=== PATIENT | male | born 1975 | race Caucasian/White ===

== ENCOUNTER 2019-06-15 13:38 | Observation (INO) ==
--- NOTE | 2019-06-15 13:49 | Emergency Department Note ---
Disposition Clinical Impression: Right upper quadrant abdominal pain Cholelithiasis Qualifiers: Cholelithiasis location: gallbladder Cholecystitis presence: without cho lecystitis Biliary obstruction: without biliary obstruction Qualified Code(s): K80.20 - Calculus of gallbladder without cholecystitis without obstruction Disposition: Admitted As Inpatient Condition: Undetermined Time of Disposition: 16:00 Abdominal Pain HPI - General Chief Complaint: ED Abdominal Pain Stated Complaint: gallbladder Time Seen by Provider: 06/15/19 13:46 Source: patient Mode of arrival: private vehicle Limitations: no limitations Nursing Notes Reviewed: Yes Vital Signs Reviewed: Yes - History of Present Illness HPI Narrative: Patient is a 43 year old male with a PMHx of hypertension and hyperlipidemia, presenting with CC of right upper quadrant abdominal pain. The patient was seen at [facility] a week ago. He has been having right upper quadrant abdominal pain. Pain started after eating greasy foods. It radiates into his epigastric and right upper quadrant. He had a CT done during that time which showed early mild acute cholecystitis. He had a fever at the time. The patient received IV fluids, Zofran, Protonix. He was discharged home on Cipro and given information to follow up with a general surgeon. Patient continues to complain of the pain that is colicky, comes in waves, and worse after eating. He has been taking tylenol without improvement in the pain. He has nausea, but denies vomiting, diarrhea, constipation, dysuria, hematuria, no chest pain, shortness of breath, fevers or chills. He was seen by his primary care physician's office. His PCP, Dr. Loc Ames, called up the general surgeon that the patient is supposed to see, Dr. Dallas. Dr. Dallas recommend the patient come to [facility] for lab work and further evaluation. Pain Scale: 6 - Related Data Home Medications Medication Instructions Recorded Confirmed ALPRAZolam [Xanax 1 MG Tablet] 1 mg PO BID 06/15/19 06/15/19 Alprazolam [Alprazolam Xr] 1 mg PO BID 06/15/19 06/15/19 Aspirin [Lo-Dose Aspirin EC] 81 mg PO DAILY 06/15/19 06/15/19 Atenolol 100 mg PO DAILY 06/15/19 06/15/19 BuPROPion XL (24 HR) [Wellbutrin 150 mg PO DAILY 06/15/19 06/15/19 XL] Ciprofloxacin [Cipro] 500 mg PO BID 06/15/19 06/15/19 Mometasone Furoate [Nasonex] 17 gm NS DAILY 06/15/19 06/15/19 [place]-3/Dha/Epa/Fish Oil [Fish Oil 1 each PO DAILY 06/15/19 06/15/19 1,000 mg Softgel] Ondansetron HCl [Zofran] 4 mg PO TID PRN 06/15/19 06/15/19 Pantoprazole Sodium [Protonix] 40 mg PO DAILY 06/15/19 06/15/19 Potassium Chloride [K-Tab ER] 20 meq PO BID 06/15/19 06/15/19 Pravastatin Sodium [Pravachol] 80 mg PO DAILY 06/15/19 06/15/19 Topiramate [Topamax] 25 mg PO HS 06/15/19 06/15/19 Allergies Allergy/AdvReac Type Severity Reaction Status Date / Time No Known Allergies Allergy Verified 06/15/19 13:43 All systems ED: reviewed and negative except as stated. Review of Systems: As Per HPI Constitutional: Denies: fever, chills Cardiovascular: Denies: chest pain, palpitations Respiratory: Denies: cough, dyspnea Gastrointestinal: Reports: abdominal pain, nausea. Denies: vomiting, diarrhea Genitourinary: Denies: dysuria, hematuria Musculoskeletal: Denies: back pain Neurological: Denies: headache, weakness Abdominal Pain PMH - Past Medical History Medical history: Reports: hyperlipidemia, hypertension Male Surgical History: Reports: no surgical history Psychiatric history: Reports: anxiety - Social History Smoking status: Never smoker Alcohol use: Reports: none Drug use: Reports: none Physical Exam - General Limitations: no limitations General appearance: alert, in no apparent distress - Head Head exam: atraumatic, normocephalic - Eye Eye exam: Present: normal appearance, EOMI - ENT ENT exam: normal exam, normal oropharynx - Neck Neck exam: Present: normal inspection, trachea midline - Chest Chest inspection: Present: normal inspection, symmetric chest wall rise - Respiratory Respiratory exam: Present: normal lung sounds bilaterally. Absent: respiratory distress, wheezes - Cardiovascular Cardiovascular exam: Present: regular rate, normal rhythm, normal heart sounds - Abdominal Exam Abdominal exam: Present: soft, Garcia's sign, other (right upper quadrant abdominal tenderness to palpation without rebound or guarding). Absent: distention - Extremities Exam Extremities exam: Present: normal capillary refill. Absent: pedal edema, calf tenderness - Neurological Exam Neurological exam: Present: alert, oriented X3 - Psychiatric Psychiatric exam: Present: normal affect, normal mood - Skin Skin exam: Present: warm, dry. Absent: diaphoresis, pallor Course Vital Signs Temperature 98.1 F 06/15/19 13:41 Pulse Rate 80 06/15/19 13:41 Respiratory Rate 16 06/15/19 13:41 Blood Pressure 161/104 06/15/19 13:41 O2 Sat by Pulse Oximetry 99 06/15/19 13:41 Temperature 98.1 F 06/15/19 13:41 Pulse Rate 78 06/15/19 16:25 Respiratory Rate 18 06/15/19 16:25 Blood Pressure 156/104 06/15/19 16:25 O2 Sat by Pulse Oximetry 94 06/15/19 16:25 Oxygen Delivery Oxygen Delivery Room Air Abdominal Pain - MDM Narrative Medical decision making narrative: Patient sent from his primary care physician's office and recommendation by general surgery, Dr. Dallas for further evaluation of his gallbladder. We will obtain CBC, BMP, hepatic panel and lipase. We will do a bedside ultrasound. We will obtain a formal ultrasound. Medical records from [facility] and his primary care physician's office were reviewed. Once imaging and labs return, will talk to surgery. 114:15 ED point of care bedside ultrasound for gallbladder was attempted however the patient had much bowel gas and was in pain. Will give him fentanyl and zofran and obtain formal gallbladder US. 15:20 Labs reviewed and are unremarkable. 15:40 Gallbladder US shows cholelithiasis without evidence of acute cholecystitis. Surgery, Dr. Dallas paged. 15:[address] Dallas, general surgery who will evaluate the patient while in the ER. 16:00 Patient was admitted to general surgery. - Medical Records Medical records reviewed: Yes I reviewed the patient's medical records. - Lab Data Lab results reviewed: Yes I reviewed the patient's lab results. Result diagrams: 06/15/19 14:08 06/15/19 14:08 Lab Results 06/15/19 06/15/19 Range/Units 14:08 14:08 WBC 8.0 (4.3-11.1) K/mcL RBC 5.62 H (4.19-5.50) M/mcL Hgb 16.2 (12.9-16.9) g/dL Hct 48.1 (37.5-50.1) % MCV 85.6 (83.0-100.0) fL MCH 28.8 (28.0-33.3) pg MCHC 33.7 (31.6-35.5) g/dL RDW 12.3 (11.5-14.5) % Plt Count 216 (140-400) K/mcL MPV 9.4 (9.4-12.4) fL Immature Gran % 0.4 (0-4) % Seg Neutrophils % 57.9 % Lymphocytes % 31.3 % Monocytes % 8.0 % Eosinophils % 1.8 % Basophils % 0.6 % Neutrophils # 4.6 (1.6-8.9) K/mcL Lymphocytes # 2.5 (0.6-4.6) K/mcL Monocytes # 0.6 (0.0-1.3) K/mcL Eosinophils # 0.1 (0.0-0.6) K/mcL Basophils # 0.1 (0.0-0.2) K/mcL Sodium 140 (136-145) mEq/L Potassium 3.7 (3.5-5.1) mEq/L Chloride 104 (98-107) mEq/L Carbon Dioxide 27 (23-29) mEq/L BUN 18 (6-20) mg/dL Creatinine 0.93 (0.70-1.30) mg/dL Est GFR ( Amer) > 60 (> 60) Est GFR (Non-Af Amer) > 60 (> 60) BUN/Creatinine Ratio 19 (6-26) Glucose 119 H (70-105) mg/dL Calculated Osmolality 293 (280-300) Calcium 9.5 (8.6-10.3) mg/dL Total Bilirubin 0.4 (0.3-1.0) mg/dL Direct Bilirubin 0.0 (0.0-0.2) mg/dL Indirect Bilirubin 0.4 (0.0-1.2) mg/dL AST 22 (13-39) Units/L ALT 36 (7-52) Units/L Alkaline Phosphatase 68 (34-104) Units/L Serum Total Protein 7.2 (6.4-8.9) g/dL Albumin 4.7 (3.5-5.7) g/dL Globulin 2.5 (2.4-3.5) g/dL Albumin/Globulin Ratio 1.9 (1.1-2.2) Lipase 25 (11-82) Units/L - Radiology Data Radiology results reviewed: Yes I reviewed the patient's radiology results. Gallbladder Ultrasound 06/15/19 14:15 IMPRESSION: Cholelithiasis without evidence of acute cholecystitis or other acute process in the right upper quadrant. D/ / Doc Tafoya MD / Doc Tafoya MD Interpreting Provider: Doc Tafoya MD
[2019-06-15] MEDS ORDERED: Ondansetron 4 MG/2 ML VIAL IVP ONE ×2 (14:16→18:09)
[2019-06-15] MEDS ORDERED: *HR* FentaNYL (PF) 100 MCG/2 ML VIAL IVP ONE (14:16)
--- NOTE | 2019-06-15 14:21 | Emergency Department Note ---
Disposition Clinical Impression: Right upper quadrant abdominal pain Cholelithiasis Qualifiers: Cholelithiasis location: gallbladder Cholecystitis presence: without cho lecystitis Biliary obstruction: without biliary obstruction Qualified Code(s): K80.20 - Calculus of gallbladder without cholecystitis without obstruction Disposition: Admitted As Inpatient Condition: Fair Forms: ED Satisfaction Letter, Work/School Release Time of Disposition: 16:13 General Adult HPI - General Chief complaint: ED Abdominal Pain Stated complaint: gallbladder Time Seen by Provider: 06/15/19 13:46 Source: patient Mode of arrival: private vehicle Limitations: no limitations - History of Present Illness Pain Scale: 6 - Related Data Allergies Allergy/AdvReac Type Severity Reaction Status Date / Time No Known Allergies Allergy Verified 06/15/19 13:43 Constitutional: Denies: fever, chills Cardiovascular: Denies: chest pain, palpitations Respiratory: Denies: cough, dyspnea Gastrointestinal: Reports: abdominal pain, nausea. Denies: vomiting, diarrhea Genitourinary: Denies: dysuria, hematuria Musculoskeletal: Denies: back pain Neurological: Denies: headache, weakness Past Medical History - Past Medical History Medical history: Reports: hyperlipidemia, hypertension Psychiatric history: Reports: anxiety - Social History Smoking Status: Never smoker Alcohol use: Reports: none Drug use: Reports: none Physical Exam - General Limitations: no limitations General appearance: alert, in no apparent distress Course Vital Signs Temperature 98.1 F 06/15/19 13:41 Pulse Rate 80 06/15/19 13:41 Respiratory Rate 16 06/15/19 13:41 Blood Pressure 161/104 06/15/19 13:41 O2 Sat by Pulse Oximetry 99 06/15/19 13:41 Temperature 98.1 F 06/15/19 13:41 Pulse Rate 78 06/15/19 15:24 Respiratory Rate 18 06/15/19 15:24 Blood Pressure 139/88 06/15/19 15:24 O2 Sat by Pulse Oximetry 97 06/15/19 15:24 Oxygen Delivery Oxygen Delivery Room Air Medical Decision Making - Lab Data Result diagrams: 06/15/19 14:08 06/15/19 14:08 Lab Results 06/15/19 06/15/19 Range/Units 14:08 14:08 WBC 8.0 (4.3-11.1) K/mcL RBC 5.62 H (4.19-5.50) M/mcL Hgb 16.2 (12.9-16.9) g/dL Hct 48.1 (37.5-50.1) % MCV 85.6 (83.0-100.0) fL MCH 28.8 (28.0-33.3) pg MCHC 33.7 (31.6-35.5) g/dL RDW 12.3 (11.5-14.5) % Plt Count 216 (140-400) K/mcL MPV 9.4 (9.4-12.4) fL Immature Gran % 0.4 (0-4) % Seg Neutrophils % 57.9 % Lymphocytes % 31.3 % Monocytes % 8.0 % Eosinophils % 1.8 % Basophils % 0.6 % Neutrophils # 4.6 (1.6-8.9) K/mcL Lymphocytes # 2.5 (0.6-4.6) K/mcL Monocytes # 0.6 (0.0-1.3) K/mcL Eosinophils # 0.1 (0.0-0.6) K/mcL Basophils # 0.1 (0.0-0.2) K/mcL Sodium 140 (136-145) mEq/L Potassium 3.7 (3.5-5.1) mEq/L Chloride 104 (98-107) mEq/L Carbon Dioxide 27 (23-29) mEq/L BUN 18 (6-20) mg/dL Creatinine 0.93 (0.70-1.30) mg/dL Est GFR ( Amer) > 60 (> 60) Est GFR (Non-Af Amer) > 60 (> 60) BUN/Creatinine Ratio 19 (6-26) Glucose 119 H (70-105) mg/dL Calculated Osmolality 293 (280-300) Calcium 9.5 (8.6-10.3) mg/dL Total Bilirubin 0.4 (0.3-1.0) mg/dL Direct Bilirubin 0.0 (0.0-0.2) mg/dL Indirect Bilirubin 0.4 (0.0-1.2) mg/dL AST 22 (13-39) Units/L ALT 36 (7-52) Units/L Alkaline Phosphatase 68 (34-104) Units/L Serum Total Protein 7.2 (6.4-8.9) g/dL Albumin 4.7 (3.5-5.7) g/dL Globulin 2.5 (2.4-3.5) g/dL Albumin/Globulin Ratio 1.9 (1.1-2.2) Lipase 25 (11-82) Units/L Attestation Statement - Attestation Attestation: I examined this patient and my medical decision-making was reviewed with the Resident Physician. I agree with the documented findings, disposition and treatment plan as described except to the extent set forth below. Patient to the ED with a chief complaint of right upper quadrant abdominal pain. Radiates to the epigastric area. Onset about a week ago. He was evaluated at outside hospital that time and a CT scan was concerning for some Taylor cystitis and call bladder wall thickening. He continues to have pain. He has had some fevers. He has been unable to follow-up with surgery thus far. He saw his PCP who consulted with surgery who recommended him to come to the ED. On exam he is in no distress with right upper quadrant tenderness. Plan. Bedside also performed by with my supervision. Nonvisualization of the gallbladder. We will get formal ultrasound, labs, surgery consultation. Ultrasound shows gallstones. Surgery to see. Patient is admitted to Dr. Dallas
[2019-06-15 14:24] LABS: Basophils # 0.1 K/mcL (0.0-0.2); Basophils % 0.6 %; Eosinophils # 0.1 K/mcL (0.0-0.6); Eosinophils % 1.8 %; Hematocrit 48.1 % (37.5-50.1); Hemoglobin 16.2 g/dL (12.9-16.9); Immature Granulocytes % 0.4 % (0-4); Lymphocytes # 2.5 K/mcL (0.6-4.6); Lymphocytes % 31.3 %; Mean Corpuscular HGB Conc 33.7 g/dL (31.6-35.5); Mean Corpuscular Hemoglobin 28.8 pg (28.0-33.3); Mean Corpuscular Volume 85.6 fL (83.0-100.0); Mean Platelet Volume 9.4 fL (9.4-12.4); Monocytes # 0.6 K/mcL (0.0-1.3); Neutrophils # 4.6 K/mcL (1.6-8.9); Platelet Count 216 K/mcL (140-400); Red Blood Count 5.62 M/mcL (4.19-5.50); Red Cell Distribution Width 12.3 % (11.5-14.5); Segmented Neutrophils % 57.9 %
[2019-06-15 14:56] LABS: Alanine Aminotransferase 36 Units/L (7-52); Albumin 4.7 g/dL (3.5-5.7); Albumin/Globulin Ratio 1.9 (1.1-2.2); Alkaline Phosphatase 68 Units/L (34-104); Aspartate Amino Transferase 22 Units/L (13-39); BUN/Creatinine Ratio 19 (6-26); Bilirubin,Indirect 0.4 mg/dL (0.0-1.2); Bilirubin,Total 0.4 mg/dL (0.3-1.0); Blood Urea Nitrogen 18 mg/dL (6-20); Calcium 9.5 mg/dL (8.6-10.3); Carbon Dioxide 27 mEq/L (23-29); Chloride 104 mEq/L (98-107); Globulin 2.5 g/dL (2.4-3.5); Glucose 119 mg/dL (70-105); Lipase 25 Units/L (11-82); Osmolality,Calculated 293 (280-300); Potassium 3.7 mEq/L (3.5-5.1); Sodium 140 mEq/L (136-145); Total Protein 7.2 g/dL (6.4-8.9); eGFR For African Americans > 60 (> 60); eGFR For Non-African Americans > 60 (> 60)
[2019-06-15] MEDS ORDERED: Hyoscyamine SL 0.125 MG TAB.SUBL SL STA (15:42)
[2019-06-15] MEDS ORDERED: Ondansetron ODT 4 MG TAB.RAPDIS SL PRN ×2 (16:32→20:54)
[2019-06-15] MEDS ORDERED: D5% in 0.45% NACL w KCl 20 MEQ/1,000 ML MLS IVC SCH ×2 (16:45→20:54)
--- NOTE | 2019-06-15 17:07 | Acute Care Surgery H&P ---
Date of Encounter: 06/15/19 Time of Encounter: 17:05 Assessment and Plan (1) Cholelithiasis Current Visit: Yes Status: Acute 43M with symptomatic cholelithiasis; NPO IVF IV abx OR today for mohit with IOC The assessment and plan as outlined above was discussed with the patient and/or family members who expressed understanding and agreement. All questions were answered. Qualifiers: Cholelithiasis location: gallbladder Cholecystitis presence: without cholecystitis Biliary obstruction: without biliary obstruction Qualified Code(s): K80.20 - Calculus of gallbladder without cholecystitis without obstruction History of Present Illness Chief complaint: abdominal pain HPI: Mr. Mckeon is a 43 year old male PMH significant for HLD, HTN, GERD who presents with post prandial RUQ abdominal pain with radiation to the back. the pain is rated a 8/10 with the patient holding his hand over the area where it hurts most. No associated nausea, vomiting reported, but the pain is not resolving like it has in the past. He is scheduled for an appointment on 06/25, but does not feel he can make it until then. General surgery was consulted for management recommendations. US was obtained which was reviewed by me which demonstrated Small gallbladder stone. No gallbladder wall thickening or pericholecystic fluid. Past Med Surg Social Fam HX - Past Medical History Medical history: hyperlipidemia, hypertension Additional medical history: Horse shoe kidney Psychiatric history: anxiety - Past Surgical History Surgical History: no surgical history - Social History Smoking Status: Never smoker Alcohol use: none Drug use: none - Additional Family History Additional family history: non contributory Medications and Allergies ALPRAZolam [Xanax 1 MG Tablet] 1 mg PO BID 06/15/19 [History] Alprazolam [Alprazolam Xr] 1 mg PO BID 06/15/19 [History] Aspirin [Lo-Dose Aspirin EC] 81 mg PO DAILY 06/15/19 [History] Atenolol 100 mg PO DAILY 06/15/19 [History] BuPROPion XL (24 HR) [Wellbutrin XL] 150 mg PO DAILY 06/15/19 [History] Ciprofloxacin [Cipro] 500 mg PO BID 06/15/19 [History] Mometasone Furoate [Nasonex] 17 gm NS DAILY 06/15/19 [History] [place]-3/Dha/Epa/Fish Oil [Fish Oil 1,000 mg Softgel] 1 each PO DAILY 06/15/19 [History] Ondansetron HCl [Zofran] 4 mg PO TID PRN 06/15/19 [History] Pantoprazole Sodium [Protonix] 40 mg PO DAILY 06/15/19 [History] Potassium Chloride [K-Tab ER] 20 meq PO BID 06/15/19 [History] Pravastatin Sodium [Pravachol] 80 mg PO DAILY 06/15/19 [History] Topiramate [Topamax] 25 mg PO HS 06/15/19 [History] Allergy/AdvReac Type Severity Reaction Status Date / Time No Known Allergies Allergy Verified 06/15/19 13:43 Review of Systems All systems PM: 12 point ROS negative besides HPI findings General Surgery Exam Initial Vital Signs Temp Pulse Resp BP Pulse Ox 98.1 F 80 16 161/104 99 06/15/19 13:41 06/15/19 13:41 06/15/19 13:41 06/15/19 13:41 06/15/19 13:41 - General physical appearance no distress - Eyes PERRL, normal ocular movement - ENT normocephalic - Neck trachea midline, no lymphadectomy - Respiratory normal expansion, normal respiratory effort - Cardiovascular Cardiovascular exam: Present: RRR - Abdomen Abdomen general surgery: Present: soft, tender Abdominal Tenderness: Present: RUQ - Integumentary Integumentary general surgery: Present: warm and dry - Neurologic Present: CN 2-12 grossly intact - Musculoskeletal Present: normal gait, normal posture - Psychiatric Psychiatric general surgery: Present: A&Ox3 Results - Labs 06/15/19 14:08 06/15/19 14:08 Abnormal lab results RBC 5.62 M/mcL (4.19-5.50) H 06/15/19 14:08 Glucose 119 mg/dL (70-105) H 06/15/19 14:08 Diabetes panel 06/15/19 Range/Units 14:08 Sodium 140 (136-145) mEq/L Potassium 3.7 (3.5-5.1) mEq/L Chloride 104 (98-107) mEq/L Carbon Dioxide 27 (23-29) mEq/L BUN 18 (6-20) mg/dL Creatinine 0.93 (0.70-1.30) mg/dL Glucose 119 H (70-105) mg/dL Calcium 9.5 (8.6-10.3) mg/dL AST 22 (13-39) Units/L ALT 36 (7-52) Units/L Alkaline Phosphatase 68 (34-104) Units/L Albumin 4.7 (3.5-5.7) g/dL Calcium panel 06/15/19 Range/Units 14:08 Calcium 9.5 (8.6-10.3) mg/dL Albumin 4.7 (3.5-5.7) g/dL Pituitary panel 06/15/19 Range/Units 14:08 Sodium 140 (136-145) mEq/L Potassium 3.7 (3.5-5.1) mEq/L Chloride 104 (98-107) mEq/L Carbon Dioxide 27 (23-29) mEq/L BUN 18 (6-20) mg/dL Creatinine 0.93 (0.70-1.30) mg/dL Glucose 119 H (70-105) mg/dL Calcium 9.5 (8.6-10.3) mg/dL Adrenal panel 06/15/19 Range/Units 14:08 Sodium 140 (136-145) mEq/L Potassium 3.7 (3.5-5.1) mEq/L Chloride 104 (98-107) mEq/L Carbon Dioxide 27 (23-29) mEq/L BUN 18 (6-20) mg/dL Creatinine 0.93 (0.70-1.30) mg/dL Glucose 119 H (70-105) mg/dL Calcium 9.5 (8.6-10.3) mg/dL Total Bilirubin 0.4 (0.3-1.0) mg/dL AST 22 (13-39) Units/L ALT 36 (7-52) Units/L Alkaline Phosphatase 68 (34-104) Units/L Albumin 4.7 (3.5-5.7) g/dL All other labs normal. - Imaging US - abdomen: report reviewed, image reviewed
--- NOTE | 2019-06-15 17:09 | Anesthesia Evaluation PreOp ---
Date of Encounter: 06/15/19 Time of Encounter: 17:06 - Past History Planned Operation: [employer]otic [employer]. [place]. Alcohol Use: none Drug use: none Medications and Allergies ALPRAZolam [Xanax 1 MG Tablet] 1 mg PO BID 06/15/19 [History] Alprazolam [Alprazolam Xr] 1 mg PO BID 06/15/19 [History] Aspirin [Lo-Dose Aspirin EC] 81 mg PO DAILY 06/15/19 [History] Atenolol 100 mg PO DAILY 06/15/19 [History] BuPROPion XL (24 HR) [Wellbutrin XL] 150 mg PO DAILY 06/15/19 [History] Ciprofloxacin [Cipro] 500 mg PO BID 06/15/19 [History] Mometasone Furoate [Nasonex] 17 gm NS DAILY 06/15/19 [History] [place]-3/Dha/Epa/Fish Oil [Fish Oil 1,000 mg Softgel] 1 each PO DAILY 06/15/19 [History] Ondansetron HCl [Zofran] 4 mg PO TID PRN 06/15/19 [History] Pantoprazole Sodium [Protonix] 40 mg PO DAILY 06/15/19 [History] Potassium Chloride [K-Tab ER] 20 meq PO BID 06/15/19 [History] Pravastatin Sodium [Pravachol] 80 mg PO DAILY 06/15/19 [History] Topiramate [Topamax] 25 mg PO HS 06/15/19 [History] Allergy/AdvReac Type Severity Reaction Status Date / Time No Known Allergies Allergy Verified 06/15/19 13:43 Anesthesia Results - Labs 06/15/19 14:08 06/15/19 14:08
--- NOTE | 2019-06-15 17:30 | Anesthesia Evaluation PreOp ---
Date of Encounter: 06/15/19 Time of Encounter: 17:28 - Past History Planned Operation: [employer]otic [employer]. 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 History: Other (anxiety/Depression) Other Medical History: GERD Anesthesia History: No Prior Anesthetic Complications, Past Anesthesia (none) Alcohol Use: none Drug use: none Medications and Allergies ALPRAZolam [Xanax 1 MG Tablet] 1 mg PO BID 06/15/19 [History] Alprazolam [Alprazolam Xr] 1 mg PO BID 06/15/19 [History] Aspirin [Lo-Dose Aspirin EC] 81 mg PO DAILY 06/15/19 [History] Atenolol 100 mg PO DAILY 06/15/19 [History] BuPROPion XL (24 HR) [Wellbutrin XL] 150 mg PO DAILY 06/15/19 [History] Ciprofloxacin [Cipro] 500 mg PO BID 06/15/19 [History] Mometasone Furoate [Nasonex] 17 gm NS DAILY 06/15/19 [History] [place]-3/Dha/Epa/Fish Oil [Fish Oil 1,000 mg Softgel] 1 each PO DAILY 06/15/19 [History] Ondansetron HCl [Zofran] 4 mg PO TID PRN 06/15/19 [History] Pantoprazole Sodium [Protonix] 40 mg PO DAILY 06/15/19 [History] Potassium Chloride [K-Tab ER] 20 meq PO BID 06/15/19 [History] Pravastatin Sodium [Pravachol] 80 mg PO DAILY 06/15/19 [History] Topiramate [Topamax] 25 mg PO HS 06/15/19 [History] Allergy/AdvReac Type Severity Reaction Status Date / Time No Known Allergies Allergy Verified 06/15/19 13:43 - Meds/Allergy Pre-op Review Medications Reviewed: Yes Allergies Reviewed: Yes Beta Blockers on Current Med List: Yes If Beta Blockers taken, Date/Time (Last Dose taken): 08:00 today Anesthesia Results - Labs 06/15/19 14:08 06/15/19 14:08 Anesthesia Exam Vital Signs/O2 Sat, Most Current Temp Pulse Resp BP Pulse Ox 98.1 F 76 18 143/97 96 06/15/19 13:41 06/15/19 17:22 06/15/19 17:22 06/15/19 17:22 06/15/19 17:22 - HEENT Pupil (Motor): Pupils equal, EOMI Mallampati: III Teeth: Missing Denture Type: Upper: Complete Oral Opening: Greater than 3 - LADLE OPERATOR LOC: Oriented LADLE OPERATOR Motor: Normal RUE, Normal LUE, Normal RLE, Normal LLE, Normal Face LADLE OPERATOR Sensory: Normal: RUE, LUE, RLE, LLE, Face - Cardiac Rhythm: Regular Murmur: None JVD: No Carotid Bruit: No - Pulmonary Breath Sounds: bilateral Clear Respiratory Effort: Symmetrical Anesthesia Assess/Plan ASA Score: 2 Anesthetic Plan: General Autologous Blood: Yes Monitoring Plan: Standard Monitors Recovery Plan: PACU
[2019-06-15] MEDS ORDERED: Piperacillin/Tazobactam 3.375 GM in 0.9 % Sodium Chloride Mini Bag 100 ML IVPB SCH (18:00)
[2019-06-15] MEDS ORDERED: *HR* Labetalol 20 MG/4 ML SYRINGE IVP PRN (18:09)
[2019-06-15] MEDS ORDERED: *HR* Promethazine 25 MG/ML VIAL IVP PRN (18:09)
[2019-06-15] MEDS ORDERED: *HR* HYDROmorphone (PF) 1 MG/ML SYRINGE IVP PRN (18:09)
[2019-06-15] MEDS ORDERED: *HR* OxyCODONE Immed Rel 5 MG TABLET PO PRN (18:09)
[2019-06-15] MEDS ORDERED: Ondansetron 4 MG/2 ML VIAL ONE (18:16)
[2019-06-15] MEDS ORDERED: *HR* Rocuronium Bromide 50 MG/5 ML VIAL ONE (18:16)
[2019-06-15] MEDS ORDERED: *HR* FentaNYL (PF) 100 MCG/2 ML VIAL ONE (18:16)
[2019-06-15] MEDS ORDERED: *HR* Propofol 200 MG/20 ML VIAL IVP ONE (18:16)
[2019-06-15] MEDS ORDERED: Dexamethasone 4 MG/ML VIAL ONE (18:16)
[2019-06-15] MEDS ORDERED: Neostigmine Methylsulfate 3 MG/3 ML SYRINGE ONE ×2 (18:16→19:30)
[2019-06-15] MEDS ORDERED: *HR* Succinylcholine 200 MG/10 ML VIAL IVP ONE (18:16)
[2019-06-15] MEDS ORDERED: Lidocaine HCL 4 ML Topical Solution (Laryng-O-Jet Kit Sterile Pak) TP ONE (18:18)
[2019-06-15] MEDS ORDERED: Lidocaine -MPF 2% 2 ML VIAL ONE (18:18)
[2019-06-15] MEDS ORDERED: Isovue-300 50 ML VIAL ONE (18:35)
[2019-06-15] MEDS ORDERED: EPHEDrine 50 MG/ML VIAL ONE (18:42)
--- NOTE | 2019-06-15 20:29 | Operative Note ---
Date of procedure: 06/15/19 Pre-op diagnosis: symptomatic cholelithiasis Post-op diagnosis: other (acute cholecystitis) Procedure: robotic cholecystectomy Implants: none Complications: none Anesthesia: GETA Local Anesthetics: 0.5% Sensorcaine HCL SubQ (cc) Surgeon: Mamadou Dallas Was there an pastrycook's assistant present: Yes Flower Cheniller: Argelia Stout Estimated blood loss (cc): 10 Specimen: gallbladder and contents Condition: stable Disposition: PACU Procedure in Detail: The patient was brought into the operating room suite and was placed in the supine position. Mechanical DVT prophylaxis was applied. A time-in was conducted. The patient underwent smooth induction of anesthesia. Preoperative antibiotics were given. The patient was prepped and draped in the usual f ashion. A time-out was held identifying the correct patient, pathology, and procedure. Everyone was in agreement and we began the procedure. Incision to Dissection I started by creating a 12mm supraumbilical incision. Via open Luann technique I did enter into the abdomen. I inserted the 12mm trocar followed by the 30 degree camera, ensured that I did not cause intraabdominal injury upon entry, and quickly identified the gallbladder. I created a 5mm incisions one handbreadth to the left and right of the umbilical incision and an pastrycook's assistant port along the R anterior axillary line. I then docked the robot in the usual fashion. Using laparoscopic graspers I managed to elevate the gallbladder above the liver. At the Console I grasp the edge of the gallbladder to retract laterally. Using the [place] instrument as well as the hook-electrocautery, I dissected out the cystic duct and the cystic artery. I excised the posterior tissue to visualize the liver. I was able to clearly visualize the critical view of safety. Critical view of Safety to Excison of the gallbladder I then clipped both structures using plastic clips, two on the stay side, one on the specimen side. Using robotic scissors, I cut between the clip on the specimen side and the first clip on the stay side. Then using tension and counter-tension, I used the electrocautery to excise the gallbladder off of the liver bed. Before complete excision, I evaluated the liver bed to ensure there 1.) there was no bleeding, 2. No excessive bile leakage, and 3.) to evaluate my clips. There was no bleeding, bile leakage, and the clips were all the way across both duct and artery. Removal of gallbladder to Closure After undocking the robot, I inserted the endocatch bag into the umbilical port. I placed the specimen into the bag and retrieved it through the umbilical port. i then irrgiated the liver bed and above the liver before suctioning both irrigation fluid and air. I removed the 5mm ports, turned off the insufllation, then removed the 12mm umbilical port. I then close the umbilical fascia a vicryl suture in a figure of 8 fashion. All incisions were closed with interrupted 4-0 monocryl and sealed with dermabond. The patient tolerated the procedure well and went back to PACU in stable condition.
[2019-06-15] MEDS ORDERED: *HR* Labetalol 20 MG/4 ML SYRINGE IVP ONE (20:32)
--- NOTE | 2019-06-15 20:52 | Anesthesia Evaluation Post Op ---
Date of Encounter: 06/15/19 Time of Encounter: 20:52 - Vital Signs Vital Signs: Vital Signs/O2 Sat, Most Current Temp Pulse Resp BP Pulse Ox 98.1 F 82 12 162/94 93 06/15/19 20:42 06/15/19 20:42 06/15/19 20:42 06/15/19 20:42 06/15/19 20:42 - Lungs Lungs: Clear Ascult./Percussion - Airway Airway: Non-obstructed - Cardiovascular Regular Rate - Mental Status Mental Status: Alert & Oriented, Answers Appropriately - Pain Pain Scale: 0 Pain Scale used: Numeric (1 - 10) - Nausea Vomiting Nausea Vomiting: Not Present - Hydration Hydration: Tolerates oral liquids, Has not voided - Discharge PostOp Status: Transfer Patient to floor
[2019-06-15] MEDS ORDERED: ALPRAZOLAM 1 MG PO SCH (21:00)
[2019-06-15] MEDS ORDERED: Topiramate 25 MG TABLET PO SCH (21:00)
[2019-06-15] MEDS: ALPRAZolam 1 MG TABLET PO SCH (21:38)
[2019-06-15] MEDS: *HR* Heparin 5,000 UNIT/ML VIAL SQ SCH (21:39)
[2019-06-16] MEDS: *HR* Heparin 5,000 UNIT/ML VIAL SQ SCH (05:24)
[2019-06-16] MEDS ORDERED: BuPROPion XL (24 HR) 150 MG TABLET PO SCH (09:00)
[2019-06-16] MEDS: ALPRAZolam 1 MG TABLET PO SCH (09:24)
--- NOTE | 2019-06-16 12:02 | Discharge Summary ---
Orders not resulted at time of discharge: Pending orders 06/15/19 19:55 Surgical Pathology [PTH] Routine Date of Encounter: 06/16/19 Time of Encounter: 11:58 - Discharge Diagnosis (1) Cholelithiasis Priority: Primary Status: Acute Comments: 43M POD #1 s/p robotic cholecystectomy; tolerating diet, voiding; okay for discharge today follow in 2 weeks with general surgery Qualifiers: Cholelithiasis location: gallbladder Cholecystitis presence: without cholecystitis Biliary obstruction: without biliary obstruction Qualified Code(s): K80.20 - Calculus of gallbladder without cholecystitis without obstruction General Surgery Exam Initial Vital Signs Temp Pulse Resp BP Pulse Ox 98.1 F 80 16 161/104 99 06/15/19 13:41 06/15/19 13:41 06/15/19 13:41 06/15/19 13:41 06/15/19 13:41 - General physical appearance no distress - Respiratory normal expansion, normal respiratory effort - Cardiovascular Cardiovascular exam: Present: RRR - Abdomen Abdomen general surgery: Present: soft, tender (appropriately tender at incisions) - Incision Incision: Present: clean and dry, intact - Integumentary Integumentary general surgery: Present: warm and dry, no abnormal pigmentation - Neurologic Present: CN 2-12 grossly intact - Musculoskeletal Present: normal posture - Hospital Course Hospital course: Mr. Mckeon is a 43 year old male Time spent discussing smoking cessation with patient: 3 to 10 minutes - Time Spent with Patient Total time spent providing and/or coordinating discharge services: Greater than 30 minutes - Discharge Medications Prescriptions: New OxyCODONE Immed Rel [Roxicodone 5 MG] 5 mg PO Q6HR PRN 7 Days #28 tablet PRN Reason: Pain Continued Topiramate [Topamax] 25 mg PO HS Ondansetron HCl [Zofran] 4 mg PO TID PRN PRN Reason: Nausea Pravastatin Sodium [Pravachol] 80 mg PO DAILY Mometasone Furoate [Nasonex] 17 gm NS DAILY Atenolol 100 mg PO DAILY Alprazolam [Alprazolam Xr] 1 mg PO BID BuPROPion XL (24 HR) [Wellbutrin Xl] 150 mg PO DAILY Aspirin [Lo-Dose Aspirin EC] 81 mg PO DAILY ALPRAZolam [Xanax 1 MG Tablet] 1 mg PO BID Pantoprazole Sodium [Protonix] 40 mg PO DAILY Ocate-3/Dha/Epa/Fish Oil [Fish Oil 1,000 mg Softgel] 1 each PO DAILY Ciprofloxacin [Cipro] 500 mg PO BID Potassium Chloride [K-Tab ER] 20 meq PO BID Home Medications: ALPRAZolam [Xanax 1 MG Tablet] 1 mg PO BID 06/15/19 [History] Alprazolam [Alprazolam Xr] 1 mg PO BID 06/15/19 [History] Aspirin [Lo-Dose Aspirin EC] 81 mg PO DAILY 06/15/19 [History] Atenolol 100 mg PO DAILY 06/15/19 [History] BuPROPion XL (24 HR) [Wellbutrin Xl] 150 mg PO DAILY 06/15/19 [History] Ciprofloxacin [Cipro] 500 mg PO BID 06/15/19 [History] Mometasone Furoate [Nasonex] 17 gm NS DAILY 06/15/19 [History] Ocate-3/Dha/Epa/Fish Oil [Fish Oil 1,000 mg Softgel] 1 each PO DAILY 06/15/19 [History] Ondansetron HCl [Zofran] 4 mg PO TID PRN 06/15/19 [History] Pantoprazole Sodium [Protonix] 40 mg PO DAILY 06/15/19 [History] Potassium Chloride [K-Tab ER] 20 meq PO BID 06/15/19 [History] Pravastatin Sodium [Pravachol] 80 mg PO DAILY 06/15/19 [History] Topiramate [Topamax] 25 mg PO HS 06/15/19 [History] OxyCODONE Immed Rel [Roxicodone 5 MG] 5 mg PO Q6HR PRN 7 Days #28 tablet 06/16/19 [Rx] Allergies/Adverse Reactions: Allergy/AdvReac Type Severity Reaction Status Date / Time No Known Allergies Allergy Verified 06/15/19 13:43 Date of admission: 06/15/19 16:15 Primary care physician: Loc Ames MD Discharging clinician: Mamadou Dallas Anticipated date of discharge: 06/16/19 Labs on day of discharge: Labs from last 24 hours 06/15/19 06/15/19 14:08 14:08 WBC 8.0 RBC 5.62 H Hgb 16.2 Hct 48.1 MCV 85.6 MCH 28.8 MCHC 33.7 RDW 12.3 Plt Count 216 MPV 9.4 Immature Gran % 0.4 Seg Neutrophils % 57.9 Lymphocytes % 31.3 Monocytes % 8.0 Eosinophils % 1.8 Basophils % 0.6 Neutrophils # 4.6 Lymphocytes # 2.5 Monocytes # 0.6 Eosinophils # 0.1 Basophils # 0.1 Sodium 140 Potassium 3.7 Chloride 104 Carbon Dioxide 27 BUN 18 Creatinine 0.93 Est GFR ( Amer) > 60 Est GFR (Non-Af Amer) > 60 BUN/Creatinine Ratio 19 Glucose 119 H Calculated Osmolality 293 Calcium 9.5 Total Bilirubin 0.4 Direct Bilirubin 0.0 Indirect Bilirubin 0.4 AST 22 ALT 36 Alkaline Phosphatase 68 Serum Total Protein 7.2 Albumin 4.7 Globulin 2.5 Albumin/Globulin Ratio 1.9 Lipase 25 - Impressions ITS Impressions Gallbladder Ultrasound 06/15/19 14:15 IMPRESSION: Cholelithiasis without evidence of acute cholecystitis or other acute process in the right upper quadrant. D/ / Doc Tafoya MD / Doc Tafoya MD Interpreting Provider: Doc Tafoya MD - Patient Status Disposition: Home, Self-Care Condition: Good Functional capacity at discharge: independent ambulation Overall status at discharge: patient is progressing back to baseline - Discharge Instructions Follow Up With: Loc Ames MD [Primary Care Provider] - Mamadou Dallas MD [Non-Partnered Physician] - (2 weeks ) Additional Instructions: Pain Narcotics are prescribed. 1-2 tabs every 6 hours. Please take with meals. DO NOT drive while taking narcotics. Activity As tolerated. However, I encourage you to limit heaving lifting and strenuous activity until evaluated in clinic. Diet As tolerated. Please start with liquids for the first 6 hours after surgery. Your meal after 6 hours can be a regular diet. Bowel Regimen As long as you are taking narcotics, please take the stool softner daily. Warnings If you experience significant redness around the incision or drainage from the incision that is purulent or malodorous, or you experience fevers, chills, or food intolerance (including nausea, vomiting, abdominal pain or distension), jaundice or yellow skin, eyes, tongue/cheek, or any symptoms you feel warrant evaluation, please call the office. If unable to reach the office, please go to nearest urgent care center or emergency department - Diet and Activity Activity: increase activity as tolerated Diet: advance to your usual diet
[2019-06-16 12:06] VITALS: BP 124/85
== END 2019-06-16 13:16 | disposition home or self-care (01) ==
LOC: 3BNU 13:38 → EMEROOARM 13:38 → 3BNU 16:25
PROVIDERS: ADMIT Student in an Organized Health Care Education/Training Program; ATTEND Student in an Organized Health Care Education/Training Program